=== PATIENT | male | born 1955 | race Caucasian/White ===

== ENCOUNTER 2019-06-13 13:27 | Emergency (ER) | payer OTHER, BC ==
[~2019-06-13] VITALS: Ht 193 cm; Wt 88.2 kg
[2019-06-13 13:55] LABS: HEMATOCRIT 38.5 % (39.0-50.0); HEMOGLOBIN 13.3 g/dl (14.0-18.0); IMMATURE GRANULOCYTES 0.4 % (0.0-5.0); MEAN CELL VOLUME 95.1 fL CALC (80.0-100.0); MEAN CORPUSCULAR HGB 32.8 pG CALC (26.0-32.0); MEAN CORPUSCULAR HGB CONC 34.5 g/L CALC (32.0-36.0); NEUT# 4.49 thou/uL (1.82-7.42); RED BLOOD COUNT 4.05 mill/uL (4.70-6.10); RED CELL DISTRI WIDTH 11.9 % (11.5-15.5)
[2019-06-13 14:09] LABS: ALBUMIN 4.5 g/dL (3.2-5.0); ALKALINE PHOSPHATASE 59 u/l (38-126); ANION GAP 15 (6-22 (CALC)); BUN 19 mg/dL (8-23); BUN/CREATININE RATIO 20 (12-20 (CALC)); CARBON DIOXIDE 25 mmol/l (22-30); CHLORIDE 103 mmol/l (95-108); GFR > 60 ML/MIN (>=60 (CALC)); GFR FOR AFR.AMER. > 60 ML/MIN (>=60 (CALC)); LIPASE 40 u/l (23-300); POTASSIUM 3.7 mmol/l (3.5-5.1); SGOT/AST 30 u/l (19-48); SODIUM 140 mmol/l (137-146); TOTAL PROTEIN 7.8 g/dL (6.3-8.2)
[2019-06-13] MEDS ORDERED: CEPHALEXIN500 M1 PO (14:46)
[2019-06-13 15:14] LABS: URINE BILIRUBIN - DIPSTICK NEGATIVE (NEGATIVE); URINE BLOOD DIPSTICK NEGATIVE (NEGATIVE); URINE COLOR YELLOW; URINE GLUCOSE - DIPSTICK NEGATIVE (NEGATIVE); URINE KETONE NEGATIVE (NEGATIVE); URINE LEUK ESTERASE NEGATIVE (NEGATIVE); URINE NITRITE - DIPSTICK NEGATIVE (Negative); URINE PH 7.5 (4.5-8.0); URINE PROTEIN - DIPSTICK NEGATIVE (NEG-TRACE); URINE UROBILINOGEN - DIPSTICK 0.2 E.U./dL (0.2)
[2019-06-13] MEDS ORDERED: MOTRIN400 MG PO (17:23)
[2019-06-13 17:27] VITALS: BP 149/70
== END 2019-06-13 17:53 | disposition home or self-care (01) | DRG 563 ==
LOC: ED 13:27
PROVIDERS: Family Medicine
PROC: 0HQ1XZZ Repair Face Skin, External Approach (ICD-10-PCS; principal; 2019-06-13)
DX: S82.042A Displaced comminuted fracture of left patella, initial encounter for closed fracture (principal); S01.82XA Laceration with foreign body of other part of head, initial encounter; S11.91XA Laceration without foreign body of unspecified part of neck, initial encounter; S50.811A Abrasion of right forearm, initial encounter; V29.40XA Motorcycle driver injured in collision with unspecified motor vehicles in traffic accident, initial encounter
CPT/HCPCS: L1830; Q9967

== ENCOUNTER 2021-10-01 15:55 | Emergency (ER) | payer MEDICARE ==
[~2021-10-01] VITALS: Ht 193 cm; Wt 90.0 kg
[~2021-10-01 15:55] MED LIST: CEPHALEXIN500 M1 PO; MOTRIN400 MG PO
[2021-10-01 17:01] LABS: HEMATOCRIT 37.4 % (39.0-50.0); HEMOGLOBIN 13.1 g/dl (14.0-18.0); IMMATURE GRANULOCYTES 0.1 % (0.0-5.0); MEAN CELL VOLUME 92.8 fL CALC (80.0-100.0); MEAN CORPUSCULAR HGB 32.5 pG CALC (26.0-32.0); NEUT# 6.73 thou/uL (1.82-7.42); RED BLOOD COUNT 4.03 mill/uL (4.70-6.10); RED CELL DISTRI WIDTH 11.5 % (11.5-15.5)
[2021-10-01 17:17] LABS: ALBUMIN 4.7 g/dL (3.2-5.0); ALKALINE PHOSPHATASE 55 u/l (38-126); ANION GAP 14 (6-22 (CALC)); BUN 18 mg/dL (8-23); BUN/CREATININE RATIO 14 (12-20 (CALC)); CARBON DIOXIDE 25 mmol/l (22-30); CHLORIDE 103 mmol/l (95-108); CREATININE 1.3 mg/dL (0.7-1.3); GFR 55 ML/MIN (>=60 (CALC)); GFR FOR AFR.AMER. > 60 ML/MIN (>=60 (CALC)); POTASSIUM 4.3 mmol/l (3.5-5.1); SGOT/AST 36 u/l (19-48); SODIUM 138 mmol/l (137-146); TOTAL PROTEIN 7.9 g/dL (6.3-8.2)
[2021-10-01 17:22] LABS: BILIRUBIN, TOTAL 1.8 mg/dL (0.0-1.4)
[2021-10-01 18:37] LABS: ACT PARTIAL THROMBO TIME 22.3 SECONDS (20.0-32.5)
[2021-10-01 20:48] VITALS: BP 135/71
== END 2021-10-01 20:05 | disposition short-term general hospital (02) ==
LOC: ED 15:55
PROVIDERS: Family Medicine
DX: I21.4 Non-ST elevation (NSTEMI) myocardial infarction (principal); F17.200 Nicotine dependence, unspecified, uncomplicated; Z20.822 Contact with and (suspected) exposure to COVID-19
CPT/HCPCS: J0282; J1644

== ENCOUNTER 2023-02-05 11:08 | Emergency (ER) | payer MEDICARE ==
[2023-02-05] VITALS (9 sets, daily range): BP systolic 124–142; BP diastolic 64–72
[~2023-02-05] VITALS: Ht 193 cm; Wt 88.6 kg
[2023-02-05] MEDS ORDERED: KAPSPARGO SPRIN50 MG PO (11:33)
[2023-02-05 12:25] LABS: BASO% 0.9 % (0-3); EOS% 3.6 % (0-8); HEMATOCRIT 40.8 % (39.0-50.0); HEMOGLOBIN 13.8 g/dl (14.0-18.0); IMMATURE GRANULOCYTES 0.4 % (0.0-5.0); LYMPH% 31.7 % (15-41); MEAN CELL VOLUME 94.9 fL CALC (80.0-100.0); MEAN CORPUSCULAR HGB 32.1 pG CALC (26.0-32.0); MEAN CORPUSCULAR HGB CONC 33.8 g/dL CAL (32.0-36.0); NEUT# 3.04 thou/uL (1.82-7.42); NEUT% 54.4 % (42-76); RED BLOOD COUNT 4.3 mill/uL (4.70-6.10); RED CELL DISTRI WIDTH 11.7 % (11.5-15.5)
[2023-02-05 12:32] LABS: PROTHROMBIN TIME 10.4 SECONDS (9.0-12.5)
[2023-02-05 12:37] LABS: ALBUMIN 4.6 g/dL (3.2-5.0); ALKALINE PHOSPHATASE 62 u/l (38-126); ANION GAP 12 (6-22 (CALC)); BILIRUBIN, TOTAL 1.9 mg/dL (0.2-1.3); BUN 20 mg/dL (8-23); BUN/CREATININE RATIO 21 (12-20 (CALC)); CARBON DIOXIDE 25 mmol/l (22-30); CHLORIDE 105 mmol/l (95-108); GFR FOR AFR.AMER. > 60 ML/MIN (>=60 (CALC)); GFR OTHER RACES > 60 ML/MIN (>=60 (CALC)); POTASSIUM 4.4 mmol/l (3.5-5.1); SGOT/AST 39 u/l (19-48); SODIUM 138 mmol/l (137-146); TOTAL PROTEIN 7.9 g/dL (6.3-8.2)
== END 2023-02-05 15:24 | disposition home or self-care (01) ==
LOC: ED 11:08
PROVIDERS: Nurse Practitioner
DX: I95.89 Other hypotension (principal); I10 Essential (primary) hypertension; I25.10 Atherosclerotic heart disease of native coronary artery without angina pectoris; E78.5 Hyperlipidemia, unspecified; F17.200 Nicotine dependence, unspecified, uncomplicated

== ENCOUNTER 2024-05-23 02:19 | Emergency (ER) | payer MEDICARE ==
[~2024-05-23] VITALS: Ht 193 cm; Wt 90.0 kg
[~2024-05-23 02:19] MED LIST changes: +KAPSPARGO SPRIN50 MG PO
[2024-05-23] MEDS ORDERED: Pantoprazole Sodium 40 MG VIAL (Protonix) IV ONE (02:35)
[2024-05-23] MEDS ORDERED: SODIUM CHLORIDE 0.9% 1,000 ML IV ONE (02:35)
[2024-05-23] MEDS ORDERED: ELIQUIS5 MG PO (02:36)
[2024-05-23] MEDS ORDERED: ATORVASTATIN CA40 MG PO (02:36)
[2024-05-23] MEDS ORDERED: ASPIRINCHW 81MG PO (02:36)
[2024-05-23] MEDS ORDERED: STOOL SOFTENER100 M1 PO ×2 (02:37→02:38)
[2024-05-23] MEDS ORDERED: LASIX 40 MG TAB40 MG PO (02:38)
[2024-05-23] MEDS ORDERED: KLOR-CON M2020 MEQ PO (02:38)
[2024-05-23] MEDS ORDERED: D350 MC1 PO (02:39)
[2024-05-23] MEDS ORDERED: B121000 MC1 PO (02:39)
[2024-05-23] MEDS ORDERED: TOPROL XL50 MG PO (02:39)
[2024-05-23 02:48] LABS: BASO% 0.9 % (0-3); EOS% 3.6 % (0-8); IMMATURE GRANULOCYTES 0.6 % (0.0-5.0); LYMPH% 33.3 % (15-41); MEAN CELL VOLUME 96.9 fL CALC (80.0-100.0); MEAN CORPUSCULAR HGB 32.3 pG CALC (26.0-32.0); MEAN CORPUSCULAR HGB CONC 33.3 g/dL CAL (32.0-36.0); MONO% 6.8 % (2-13); NEUT# 5.35 thou/uL (1.82-7.42); NEUT% 54.8 % (42-76); RED BLOOD COUNT 3.56 mill/uL (4.70-6.10); RED CELL DISTRI WIDTH 11.9 % (11.5-15.5)
[2024-05-23 02:49] LABS: HEMATOCRIT 34.5 % (39.0-50.0); HEMOGLOBIN 11.5 g/dl (14.0-18.0)
[2024-05-23 05:02] LABS: INTERNATIONAL NORMALIZED RATIO 1.1 RATIO (0.7-1.3); PROTHROMBIN TIME 10.2 SECONDS (9.0-12.5)
[2024-05-23 05:23] LABS: BILIRUBIN, TOTAL 1.7 mg/dL (0.2-1.3); CREATININE 1.1 mg/dL (0.7-1.3); POTASSIUM 4.1 mmol/l (3.5-5.1); TOTAL PROTEIN 7.2 g/dL (6.3-8.2)
[2024-05-23 05:40] VITALS: BP 96/57
[2024-05-23 05:44] LABS: BASO% 0.4 % (0-3); EOS% 1.1 % (0-8); HEMATOCRIT 30.1 % (39.0-50.0); IMMATURE GRANULOCYTES 0.2 % (0.0-5.0); LYMPH% 21.5 % (15-41); MEAN CELL VOLUME 97.7 fL CALC (80.0-100.0); MEAN CORPUSCULAR HGB 32.5 pG CALC (26.0-32.0); MEAN CORPUSCULAR HGB CONC 33.2 g/dL CAL (32.0-36.0); MONO% 5.8 % (2-13); NEUT# 6.57 thou/uL (1.82-7.42); RED BLOOD COUNT 3.08 mill/uL (4.70-6.10); RED CELL DISTRI WIDTH 11.9 % (11.5-15.5)
[2024-05-23 05:45] VITALS: BP 104/58
[2024-05-23 06:00] VITALS: BP 98/57
[2024-05-23 06:15] VITALS: BP 96/56
[2024-05-23 06:30] VITALS: BP 112/63
[2024-05-23 06:45] VITALS: BP 102/55
== END 2024-05-23 07:05 ==
LOC: ED 02:19
PROVIDERS: Emergency Medicine
DX: K62.5 Hemorrhage of anus and rectum (principal); T45.515A Adverse effect of anticoagulants, initial encounter; I11.0 Hypertensive heart disease with heart failure; I50.9 Heart failure, unspecified; I25.10 Atherosclerotic heart disease of native coronary artery without angina pectoris; E78.5 Hyperlipidemia, unspecified; I25.2 Old myocardial infarction; Z95.1 Presence of aortocoronary bypass graft; Z85.51 Personal history of malignant neoplasm of bladder; Z79.01 Long term (current) use of anticoagulants; Z86.010 Personal history of colon polyps; Z72.0 Tobacco use; Z98.890 Other specified postprocedural states
CPT/HCPCS: S0164